=== PATIENT | male | born 1960 | race Caucasian/White ===

== ENCOUNTER 2016-09-25 14:14 | Emergency (ER) | payer SELFPAY ==
[~2016-09-25] VITALS: Ht 165.1 cm; Wt 65.0 kg
[2016-09-25 14:20] VITALS: BP 190/87; PULSE 130; RESP 16; TEMP 98.7; O2SAT 95
[2016-09-25] MEDS ORDERED: SODIUM CHLOR 0.9% 1000 ML INJ 1,000 ML IV SCH (14:21)
[2016-09-25] MEDS ORDERED: NALOXONE HCL 2 MG/2 ML VIAL IV ONE (14:30)
[2016-09-25] MEDS ORDERED: SODIUM CHLORIDE 0.9% FLUSH 10 ML FLUSH IVF PRN (14:30)
[2016-09-25 14:56] VITALS: BP 170/98; PULSE 103; RESP 20; O2SAT 99
--- NOTE | 2016-09-25 15:07 | PD ---
HPI Chief Complaint: Alcohol/Drug Intoxication Time Seen by Provider: 14:21 Travel History International Travel<30 days: No Contact w/Intl Traveler<30days: No Traveled to known affect area: No History of Present Illness HPI 56-year-old male presents the emergency department for altered mental status. [facility] for altered mental status. No additional history is obtained, patient is GCS 3 and a friend fled the ambulance patient shortly after dropping patient off. [facility] Past Medical History Medical History: Denies Significant Hx Past Surgical History Surgical History: No Previous Surgery Social History Alcohol Use: Yes Tobacco Use: Yes Substance Use: Yes (iv drug user/heroin) Allergies-Medications (Allergen,Severity, Reaction): Coded Allergies: No Known Allergies (Unverified , 09/25/16) Reported Meds & Prescriptions Reported Meds & Active Scripts Active No Active Prescriptions or Reported Medications Review of Systems ROS Limitations: Clinical Condition, Altered Mental Status Physical Exam Exam Limitations: Clinical Condition, Altered Mental Status Narrative GENERAL: Thin male unresponsive SKIN: Focused skin assessment diaphoretic HEAD: Atraumatic. Normocephalic. EYES: Pupils equal and round. 1-2 mm. No scleral icterus. No injection or drainage. ENT: No nasal bleeding or discharge. Mucous membranes pink and moist. NECK: Supple CARDIOVASCULAR: Regular rate and rhythm. No murmur appreciated. RESPIRATORY: Hypoventilating with poor air movement. Initially hypoxic on room air in to the mid 70s GASTROINTESTINAL: Abdomen soft, non-tender, nondistended. MUSCULOSKELETAL: No obvious deformities. No edema. NEUROLOGICAL: GCS 3 Data Data Last Documented VS Vital Signs Date Time Temp Pulse Resp B/P Pulse Ox O2 Delivery O2 Flow Rate FiO2 09/25/16 14:56 103 20 170/98 99 09/25/16 14:20 98.7 Orders Electrocardiogram (09/25/16 14:21) Blood Glucose (09/25/16 14:21) Ecg Monitoring (09/25/16 14:21) Iv Access Insert/Monitor (09/25/16 14:21) Oximetry (09/25/16 14:21) Naloxone Inj (Narcan Inj) (09/25/16 14:30) Sodium Chloride 0.9% Flush (Ns Flush) (09/25/16 14:30) Sodium Chlor 0.9% 1000 Ml Inj (Ns 1000 M (09/25/16 14:21) MDM Medical Decision Making Medical Screen Exam Complete: Yes Emergency Medical Condition: Yes Medical Record Reviewed: Yes Differential Diagnosis 56-year-old male here [facility] for altered mental status by a friend who promptly fled thereafter. No other additional history is obtained. Patient is altered, GCS 3 with pinpoint pupils, hypoventilating strongly suspicious for opioid overdose. He is diaphoretic, hypoglycemia also on the differential. Differential includes closed head injury, skull fracture, ICH, and symptomatic anemia. Narrative Course Patient placed on monitor, IV established. His ventilations were briefly assisted while patient was being given Narcan. He was given 2 mg Narcan, 1 L normal saline bolus. Patient had immediate response and is now awake, alert and oriented. Admits to snorting heroin shortly prior to arrival. Blood glucose normal. Patient heart rate initially was in the 80s to 90s and after Narcan tachycardic in the 130s. He is asymptomatic. States his heroin uses recreational, I made no attempt to overdose or commit suicide. Twelve-lead EKG shows sinus tachycardia without notable ST or T-wave abnormalities and normal intervals. Patient was monitored in the emergency department for 3 hours without change in mental status and will be discharged home. Diagnosis Primary Impression: Heroin overdose Qualified Code: T40.1X1A - Heroin overdose, accidental or unintentional, initial encounter Referrals: [facility] for appointment Additional Instructions: Seek outpatient management for opioid abuse Med/Other Pt SpecificInfo: No Change to Meds Scripts No Active Prescriptions or Reported Meds Disposition: 01 DISCHARGE HOME Condition: Stable Cecy Cagle MD Sep 25, 2016 15:07
--- NOTE | 2016-09-26 09:02 | EKG ---
Date Performed: 09/25/2016 Time Performed: 14:23:00 PTAGE: 56 years EKG: SINUS TACHYCARDIA ABNORMAL RHYTHM ECG NO PREVIOUS TRACING DOCTOR: Peter Dean Interpretating Date/Time 09/26/2016 09:01:06
== END 2016-09-25 17:20 | disposition home or self-care (01) ==
LOC: NEPE 14:14
DX: T40.1X1A Poisoning by heroin, accidental (unintentional), initial encounter (principal); R00.0 Tachycardia, unspecified; Z72.0 Tobacco use
CPT/HCPCS: 93005; 96361; 96374; 99284; J2310; J7030